=== PATIENT | female | born 1980 | race Caucasian/White ===

== ENCOUNTER 2019-12-22 12:23 | Emergency (ER) | payer OTHER ==
[2019-12-22 12:36] VITALS: BP 141/106; TEMP 99; O2SAT 96
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
== END 2019-12-22 13:12 | disposition home or self-care (01) ==
LOC: ER 12:23
DX: S06.0X1A Concussion with loss of consciousness of 30 minutes or less, initial encounter (principal); S00.03XA Contusion of scalp, initial encounter; M54.2 Cervicalgia; J45.909 Unspecified asthma, uncomplicated; Y04.0XXA Assault by unarmed brawl or fight, initial encounter; Y07.03 Male partner, perpetrator of maltreatment and neglect; Y92.9 Unspecified place or not applicable; Z87.891 Personal history of nicotine dependence

== ENCOUNTER 2020-01-28 08:29 | Emergency (ER) | payer BC, OTHER ==
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
[2020-01-28] MEDS ORDERED: KETOROLAC TROMETHAMINE INJ 30 MG/ML VIAL IM ONE (10:35)
[2020-01-28 11:00] VITALS: BP 149/101; TEMP 99.1; O2SAT 95
== END 2020-01-28 11:05 | disposition home or self-care (01) ==
LOC: ER 08:29
DX: S16.1XXA Strain of muscle, fascia and tendon at neck level, initial encounter (principal); G44.209 Tension-type headache, unspecified, not intractable; M53.82 Other specified dorsopathies, cervical region; J45.909 Unspecified asthma, uncomplicated; Z87.891 Personal history of nicotine dependence
CPT/HCPCS: 72050; J1885

== ENCOUNTER → 2020-02-07 | Outpatient (CLI) | payer OTHER ==
--- NOTE | 2020-02-07 08:42 | RAD ---
EXAM DESCRIPTION: Thoracic Spine,AP Lateral CLINICAL HISTORY: pain in thoracic spine COMPARISON: None Available. TECHNIQUE: AP/lateral views of the thoracic spine FINDINGS: The thoracic spine alignment is intact without listhesis. The vertebral body heights are maintained. No displaced fracture or significantly appearing subluxation is seen. The intervertebral disc heights are relatively maintained. IMPRESSION: 1. No radiographic evidence of displaced thoracic spine fracture or subluxation. Electronically signed by: Pranav Al DO 02/07/2020 8:41 AM CDT
== END ==
LOC: RAD 08:19
PROVIDERS: ATTEND Nurse Practitioner
DX: M54.9 Dorsalgia, unspecified (principal)

== ENCOUNTER → 2020-06-04 | Outpatient (CLI) | payer BC, OTHER | LOC: YCFC.O 10:20 | PROVIDERS: ATTEND Nurse Practitioner | DX: Z03.818 Encounter for observation for suspected exposure to other biological agents ruled out (principal); Z20.828 Contact with and (suspected) exposure to other viral communicable diseases ==

== ENCOUNTER → 2020-10-08 | Outpatient (CLI) | payer BC, OTHER ==
--- NOTE | 2020-10-09 09:39 | RAD ---
3 radiographs right wrist Indication: pain in right wrist Comparison: None Impression: No acute fracture or malalignment. If there is persistent anatomic snuffbox tenderness, repeat wrist imaging to include a scaphoid view is recommended in one week to evaluate for occult scaphoid fracture. Minimal osteoarthritis STT joint, first CMC joint, and first MCP joint. Soft tissues are intact without radiopaque foreign body. Electronically signed by: Gilberto Gorman MD 10/09/2020 9:37 AM [facility]
== END ==
LOC: RAD 10:29
PROVIDERS: ATTEND Nurse Practitioner
DX: M19.031 Primary osteoarthritis, right wrist (principal); M18.9 Osteoarthritis of first carpometacarpal joint, unspecified

== ENCOUNTER → 2020-12-10 | Outpatient (CLI) | payer BC, OTHER | LOC: YCFC.O 15:13 | PROVIDERS: ATTEND Nurse Practitioner | DX: Z20.828 Contact with and (suspected) exposure to other viral communicable diseases (principal) ==